=== PATIENT | male | born 1965 | race Caucasian/White ===

== ENCOUNTER 2025-07-27 10:52 | Emergency (ER) | payer OTHER, SELFPAY ==
--- NOTE | ~2025-07-27 | XR_ITS ---
CLINICAL HISTORY: chest pain 2 view chest x-ray Comparison: None provided Findings: Mild hazy right lower lung atelectasis/infiltrate. Normal size heart. No acute fracture. IMPRESSION: Mild hazy right lower lung atelectasis/infiltrate. This document has been electronically signed by: Vane Aguilar MD on 07/27/2025 12:11:48
--- NOTE | 2025-07-27 10:53 | ECG_ITS ---
Test Reason : cp Blood Pressure : */* mmHG Vent. Rate : 71 BPM Atrial Rate : 71 BPM P-R Int : 162 ms QRS Dur : 78 ms QT Int : 394 ms P-R-T Axes : 16 -12 14 degrees QTcB Int : 428 ms Normal sinus rhythm Normal ECG No previous ECGs available Referred By: Calista Isidro Electronically Signed By: Kwesi Mejia
[2025-07-27 11:02] VITALS: BP 150/93; PULSE 72; RESP 18; TEMP 36.4; O2SAT 95; BMI 29.3
--- NOTE | 2025-07-27 11:03 | ED_ITS ---
HPI - General Adult General Chief complaint: Chest Pain Stated complaint: CP Time Seen by Provider: 07/27/25 11:19 History of Present Illness ED Provider: Mic TORRES narrative: The patient is a 60-year-old male who has a history of a myocardial infarction approximately 10 years ago. He had a right coronary stent at that time. His current radiation oncology manager is Dr. Mk Aleman at [facility]. The patient says that yesterday afternoon he had an episode of left-sided chest discomfort that lasted about an hour. He says that it vaguely reminded him of the episode of chest discomfort that he had when he had his IL 10 years ago although it was less severe than the episode 10 years ago. He did not seek medical evaluation yesterday. However this morning the left-sided chest discomfort returned and it radiated somewhat to his left shoulder. No definite sweats. No definite shortness of breath. No definite nausea. On this occasion he decided to come to the hospital and the symptoms abated just as he arrived at the hospital. When I interviewed him he was symptom free. He says that he has had other occasions of chest pain when he has come to the emergency room since his IL 10 years ago. His last significant evaluation for chest symptoms was about 2 years ago when he had an unremarkable stress test. Related Data Allergies Allergy/AdvReac Type Severity Reaction Status Date / Time No Known Allergies Allergy Verified 07/27/25 11:04 [facility] Social History Social History Advance Directives: No Advance Directives Information Provided: Yes Do you have a plan to hurt others: No Plan Physical Exam ED Vital Signs: Vital Signs - 24 hr 07/27/25 11:02 07/27/25 11:51 07/27/25 14:00 Temperature 97.5 F 97.9 F 98.3 F Pulse Rate 72 76 68 Respiratory Rate 18 Blood Pressure 150/93 H 121/80 118/75 Pulse Oximetry 95 92 95 Oxygen Delivery Method Room Air Room Air Room Air 07/27/25 14:37 Temperature 98.3 F Pulse Rate 68 Respiratory Rate 16 Blood Pressure 118/75 Pulse Oximetry 95 Oxygen Delivery Method Room Air BMI result Body Mass Index 29.3 Const Other: The patient is a well-groomed, fit looking 60-year-old who was awake, alert, pleasant, cooperative. He did not seem in any distress. Orientation/consciousness: patient oriented x3 HENMT Other: The face is symmetrical. ?Mucous membranes moist. Eyes Other: Pupils are round equal, conjunctivae are clear, extraocular movements intact Neck Neck: Yes normal visual inspection, Yes full ROM and Yes no JVD Resp Effort & Inspection: normal respiratory effort Auscultation: clear to auscultation bilaterally Cardio Rate: regular rate Rhythm: regular rhythm Heart sounds: S1 normal heart sound present and S2 normal heart sound present GI Other: Abdomen is soft and nontender Skin Other: The skin is dry and unremarkable Neuro General: patient oriented x3, tone normal, moves all extremities, no focal motor deficits and CN's II-XI intact bilaterally Extrem Other: There is no calf swelling or tenderness. No asymmetry. No peripheral edema. Course Course Course Narrative: Rapid medical examination performed in triage by Calista Isidro PA-C. Patient is a 60 year old assigned male at presenting to the emergency department with left sided chest pain and left arm pain / numbness. Patient states this pain feels similar to his first heart attack. Detailed physical exam and review of systems are deferred to the concrete pourer. EKG, labs, and imaging ordered. manager exchange aware of patient. Medical Decision Making Medical Decision Making [facility] Narrative: The patient is a 60-year-old male with a history of coronary disease who had some kind of an IL about 10 years ago for which she received a right coronary artery stent. His radiation oncology manager is Dr. Aleman at [facility]. He presents today with 2 episodes of left-sided chest pain. He had an episode yesterday that lasted about an hour. This occurred during the afternoon. He then had a 2nd episode that occurred just before arrival today. This 2nd episode lasted about 1-1/2 hours. Both of these episodes resolved spontaneously. He was asymptomatic at the time that I saw him. He describes a pressure-like chest discomfort that radiates down the left arm. This was not a pleuritic syndrome. There was no pain or swelling in his legs. He has no fever, sweats, chills. No cough or sputum. Yesterday morning the patient had exercised on a bicycle fairly vigorously and had had no symptoms. This was several hours before the episode of chest pain in the afternoon. Today the patient has 2 negative and undetectable troponins. His EKG looks quite normal. His vital signs are unremarkable. Given this workup and has been 9 clinical appearance I think he may be discharged to follow up with his regular radiation oncology manager. However if he is significantly worse he should return to the emergency room for additional evaluation. Lab Data 07/27/25 11:19 07/27/25 11:19 Labs: Lab Results 07/27/25 07/27/25 Range/Units 11:19 13:42 WBC 7.4 (4.8-10.8) X10*3/uL RBC 4.67 (4.60-5.80) X10*6/uL Hgb 14.8 (14.0-18.0) g/dl Hct 42.9 (42.0-52.0) % MCV 91.9 (80.0-98.0) fL MCH 31.7 (27.0-33.0) pg MCHC 34.5 (31.0-36.0) g/dl RDW 12.4 (11.0-16.0) % Plt Count 184 (160-400) X10*3/uL MPV 8.6 L (9.4-12.4) fL Immature Gran % (Auto) 0.3 (0.0-0.4) % Neut % (Auto) 73.1 H (45-73) % Lymph % (Auto) 15.4 L (20-40) % [place] % (Auto) 10.0 (2-11) % Eos % (Auto) 0.7 (0-4) % Baso % (Auto) 0.5 (0-2) % Lymph # (Auto) 1.1 L (1.2-4.9) X10*3/uL [place] # (Auto) 0.7 (0.1-1.2) X10*3/uL Eos # (Auto) 0.1 (0.0-0.4) X10*3/uL Baso # (Auto) 0.0 (0.0-0.2) X10*3/uL Abs Immat Gran (auto) 0.02 (0.00-0.03) X10*3/uL Absolute Neuts (auto) 5.4 (2.0-8.3) x10*3/uL Absolute Nucleated RBC 0.000 (0.0-0.012) X10*3/uL Nucleated RBC % (auto) 0.0 (0.0-0.2) /100WBC PT 12.8 H (10.9-12.4) SEC INR 1.1 (0.9-1.1) Sodium 140 (135-145) mmol/L Potassium 3.8 (3.3-5.1) mmol/L Chloride 106 (96-108) mmol/L Carbon Dioxide 28 (22-29) mmol/L Anion Gap 10 L (12-20) BUN 13 (9-16) mg/dL Creatinine 0.97 (0.5-1.4) mg/dL Estim Creat Clear Calc 88.1 Estimated GFR > 60 Random Glucose 115 (60-115) mg/dL Calcium 9.4 (8.4-10.2) mg/dL Magnesium 2.3 (1.6-2.6) mg/dL Total Bilirubin 0.9 (0.0-1.0) mg/dL AST 45 H (5-37) U/L ALT 60 H (0-40) U/L Alkaline Phosphatase 85 (39-117) U/L Troponin I High Sens < 2.7 < 2.7 (<3.5-35.0) ng/L NT-Pro-B Natriuret Pep 52.8 (<300) pg/mL Total Protein 7.5 (6.5-8.0) g/dL Albumin 4.6 (3.5-5.0) g/dL Independent Interpretation I performed an independent interpretation of an: EKG Interpretation: EKG at 1057 shows normal sinus rhythm at 71 beats per minute. It is an unremarkable EKG. No definite acute ischemic changes. No old EKGs available for comparison. Discharge Plan Discharge Clinical Impression: Chest pain Patient Disposition: Home, Self-Care Instructions: Chest Pain (ED) Additional Instructions: Your testing in the emergency room today seems quite reassuring. Your EKG looks quite normal and your troponins are undetectable. Nevertheless it would be appropriate for you to follow up very closely with your radiation oncology manager. Please call your radiation oncology manager first thing in the morning to arrange a follow up appointment to discuss these episodes further. If significantly worse please return to the emergency room. Referrals: Zoran Guo MD [Primary Care Provider, Medical] Marcelino Aleman MD [Physician, Cardiology] Interventions: ED Discharge Assessment Last Done: 07/27/25 14:37 Discharge Date/Time: 07/27/25 14:38 Print Language: Pashto
[2025-07-27 11:26] LABS: MANUAL DIFF FLAG NO
[2025-07-27 11:27] LABS: Hematocrit 42.9 % (42.0-52.0); Hemoglobin 14.8 g/dl (14.0-18.0); Imm Gran Abs Auto 0.02 X10*3/uL (0.00-0.03); Imm Gran Pct Auto 0.3 % (0.0-0.4); Lymphocytes Absolute Auto 1.1 X10*3/uL (1.2-4.9); Mean Corpuscular HGB Conc 34.5 g/dl (31.0-36.0); Mean Corpuscular Hemoglobin 31.7 pg (27.0-33.0); Mean Corpuscular Volume 91.9 fL (80.0-98.0); NRBC Abs Auto 0.000 X10*3/uL (0.0-0.012); NRBC Pct Auto 0.0 /100WBC (0.0-0.2); Platelet Count 184 X10*3/uL (160-400); Red Blood Count 4.67 X10*6/uL (4.60-5.80); White Blood Count 7.4 X10*3/uL (4.8-10.8)
[2025-07-27 11:32] LABS: INTERNATIONAL NORM RATIO 1.1 (0.9-1.1); Prothrombin Time 12.8 SEC (10.9-12.4)
--- OUTSIDE RECORDS SUMMARY | 2025-07-27 11:38 | XMS_ITS | Clinical Summary ---
Author Organization [facility] Address [address] [place] [phone] Phone Care Team Providers Care Wool Tamper Name Role Phone Uziel Guo MD Primary Care Provider [phone] Allergies No known active allergies Medications multivitamins capsule Orally Active aspirin 81 MG EC tablet Take 81 mg by mouth daily. Active ezetimibe (ZETIA) 10 mg tablet TAKE 1 TABLET(10 MG) BY MOUTH DAILY 90 tablet 3 03/12/2025 Active lisinopril (PRINIVIL,ZESTRI L) 5 MG tabletIndication s:Annual physical exam TAKE 1 TABLET(5 MG) BY MOUTH DAILY 90 tablet 3 03/16/2025 Active fluticasone propionate (FLONASE) 50 mcg/actuation nasal sprayIndications :Environmental allergies 1 spray by Nasal route daily. 16 g 5 03/24/2025 Active fexofenadine (BELLA) 180 MG tabletIndication s:Environmental allergies Take 1 tablet (180 mg total) by mouth daily. 90 tablet 3 03/24/2025 Active atorvastatin (LIPITOR) 80 MG tabletIndication s:Medication refill TAKE 1 TABLET BY MOUTH EVERY DAY 90 tablet 3 05/11/2025 Active Active Problems Problem Noted Date Diagnosed Date Essential hypertension 08/13/2023 Assessment & Plan (08/28/2023 12:56 PM EST): Blood pressure in the office today is normal. We will have him follow-up in 6 months. Assessment & Plan (08/13/2023 9:00 AM EDT): Blood pressure in the office today is a little over normal. He does tell me, though, that he gets headaches particularly with exertion. I am wondering if he has elevated blood pressure which is contributing to his headaches. I have suggested that he start lisinopril 5 mg once daily. He will have labs in a week. I will follow-up with him in 2 weeks. Chronic headaches 07/26/2023 Overview (07/26/2023): CT angiogram normal. Tends to get a headache after exercise. He had 1 migraine. By exam and symptoms I suspect seasonal allergies are worsening his symptoms and I recommended he start the Flonase that I previously prescribed. Continue Zyrtec and try saline nasal rinses Colon adenoma 07/01/2020 Overview (07/01/2020): Colonoscopy June 2020 Chest pain 09/18/2019 Assessment & Plan (07/11/2023 11:29 AM EDT): See above plan. History of right coronary artery stent placement 05/09/2019 Overview (07/26/2023): Negative nuclear stress test June 2023 after reporting chest discomfort during exercise Assessment & Plan (08/28/2023 12:55 PM EST): He has coronary artery disease. He has not had any chest pain or any other symptoms which are concerning for ischemia. We will continue to optimize his risk factors. Blood pressure in the office today is controlled. Continue aspirin and atorvastatin. History of non-ST elevation myocardial infarctio n (NSTEMI) 03/29/2018 Mixed hyperlipidemia 03/29/2018 Overview (05/10/2021): Well-controlled on high-dose Lipitor, prescribed after his stent Assessment & Plan (08/28/2023 12:56 PM EST): Continue Lipitor. Assessment & Plan (08/13/2023 9:00 AM EDT): Continue Lipitor. Assessment & Plan (07/11/2023 11:28 AM EDT): Continue Lipitor. ACL tear 01/29/2018 Atherosclerosis of elem co ronary artery of elem heart without angina pectoris 01/29/2018 Overview (03/24/2025): St[place] RCA in 2014, [place] [facility]. April 2021: Brief telemetry admission last month at [facility], no signs of ischemia found. Has follow-up with our cardiology group next month. He has had repeat negative stress testing since the stent. March 2025: weaned off beta rody, no anginal sx. Assessment & Plan (08/13/2023 8:59 AM EDT): He has a history of coronary artery disease and had a stent placed to the RCA in 2014. He recently had a stress test for chest discomfort. The test was normal showing no evidence of ischemia or previous AR. We will continue to optimize his risk factors. Continue aspirin and atorvastatin. Assessment & Plan (07/11/2023 11:28 AM EDT): The patient has a history of coronary artery disease and had a stent placed to the RCA in 2014. Recently, he tells me that he has been exercising on the treadmill as usual. He has been feeling well on the treadmill but afterwards he gets intermittent left-sided chest discomfort. He also gets a really profound headache after exercise. He was seen at [facility] and ruled out for an AR. He had a CT scan of the head which was normal. I have suggested that he have a nuclear stress test. The patient will hold his metoprolol for 48 hours prior to testing. I have also suggested that he have an echocardiogram. I will follow-up with him in 1 month. Assessment & Plan (03/20/2023 9:07 AM EDT): Stable, no anginal sx Lipids well controlled Chronic idiopathic gout of multiple sites 2017 Overview (10/28/2019): Inactive, has prn colchicine Assessment & Plan (01/29/2018 3:02 PM EDT): Rarely gets sx, keeps colcrys on hand prn Encounters Date Type Department Care Team Description 07/17/2025 Patient Outreach [facility] [address] [place] [address] [address], [address] Care Coordination 07/14/2025 Patient Outreach [facility] [address] [place] [address] [address] Care Coordination 07/08/2025 Patient Outreach [facility] [address] [place] [address] [address], [address] Care Coordination 05/09/2025 Refill [facility] [address], [address] [place] [address] Anayeli Aleman MD Medication Refill 04/29/2025 3:00 PM EDT Office Visit [facility] [address], [address] [place] [address] Anayeli Aleman MD Mixed hyperlipidemia (Primary Dx); Essential hypertension; Coronary artery disease involving elem coronary artery of elem heart without angina pectoris from Last 3 Months Immunizations Immunization Administration Dates Next Due COVID-19 (Pre-08/06) Pfizer Vaccine, mRNA, PF 08/28/2021,01/10/2021,12/22/2020 Influenza Quadrivalent Preservative Free IM 07/16,08/06/2021,07/28/2019 Influenza Recombinant Keyon valent Preservative Free IM 08/12/2023 Influenza Trivalent MDCK Pre servative Free IM 06/28/2024 Influenza, Unspecified Formulation 08/06/2021, Pneumococcal conjugate PCV20 03/24/2025 Td (adult) 5 Lf Tetanus Toxo id, PF, Adsorbed 03/21/2024 Tdap 10/06/2011 Family History Medical History Relation Comments Hypertension Brother 1 Hypertension Brother 2 Coronary artery disease Father Liver cancer Father Hypertension Sister Relation Status Comments Brother 1 Alive Brother 2 Alive Father (Age 58) Mother Alive Sister Alive Social History Tobacco Use Types Packs/Day Years Used Date Smoking Tobacco: Former Cigarettes 15 1 981 - 1995 Smokeless Tobacco: Never Alcohol Use Standard Drinks/Week Comments Yes 0 (1 standard drink = 0.6 oz pur e alcohol) 5/wk Child or Family Care Answer Date Record ed Do you have problems with on e of the following making it difficult for you to work, study, or receive health care? No 03/23/2025 Education Answer Date Recorded Are you interested in help w ith more adult education (for example, completing high school, GED, job training, learning the Yoruba language, technical skills, or developing parenting skills)? No 03/23/2025 Are you concerned about learning? Not on file 03/23/2025 No 03/23/2025 Yes 03/23/2025 Food Answer Date Recorded Within the past 6 months we worried whether our food would run out before we got money to buy more. Never True 03/23/2025 Within the past 6 months the food we bought just didn't last and we didn't have enough money to get more. Never True Residential Stability Answer Date Recor ded What is your housing situation today? I have mike sing 03/23/2025 How many times have you move d in the past 12 months? Zero (I did not move) 03/23/2025 Paying for Meds Answer Date Recorded Do you have trouble paying for medicines? No 03/23/2025 Paying Utility Bills Answer Date Record ed Do you have trouble paying your heating or elect ricity bill? No 03/23/2025 Transportation Answer Date Recorded Has the lack of transportati on kept you from medical appointments or from getting medications? No 03/23/2025 Digital Access Answer Date Recorded No 03/23/2025 Yes 03/23/2025 Do you have reliable internet access at home? Ye s 03/23/2025 Do you have a device (e.g., phone, tablet, computer) with a working camera? Yes 03/23/2025 Intimate Partner Violence Answer Date R ecorded Denied Basic Needs Not on file 03/23/2025 In the past 12 months have y ou been in a relationship with a person who hurts, threatens, or tries to control you? No 03/23/2025 Worried food would run out Not on file 03/23 In the past 12 months have y ou been in a relationship with a person who hurts, threatens, or tries to control you? No 03/23/2025 Sex and Gender Information Value Date Recorded Sex Assigned at Male 09/23/2018 8:23 PM EST Legal Sex Male 9:40 PM EDT Gender Identity Male 09/23/2018 8:23 PM EST Sexual Orientation Straight 09/23/2018 8: 23 PM EST Last Filed Vital Signs Vital Sign Reading Time Taken Comments Blood Pressure 150/70 04/29/2025 3:15 PM EDT Pulse 80 04/29/2025 3:15 PM EDT Temperature 36.4 C (97.6 F) 03/24/2025 7:54 AM EDT Respiratory Rate 17 07/03/2023 9:00 PM EDT Oxygen Saturation 97% 04/29/2025 3:15 PM EDT Inhaled Oxygen Concentration - - Weight 86.3 kg (190 lb 3.2 oz) 04/29/2025 3:15 P M EDT Height 171.4 cm (5' 7.48 ) 04/29/2025 3:15 PM ED T Body Mass Index 29.37 04/29/2025 3:15 PM EDT Plan of Treatment Upcoming Encounters Date Type Department Care Team (Late st Contact Info) Description 08/17/2025 12:00 PM EST Office Visit [facility] [address] [place] [address] Unknown, Unknown, Damaris Szymanski, WATER TENDER [address] [place] [address] 11/17/2025 7:40 AM EST Office Visit [facility] [address] [place] [address] [address]rd Floor, [address] [place] [address] Anayeli Aleman MD [address] [place] [address], [address] [address] 03/30/2026 8:00 AM EDT Office Visit [facility] [address] [place] [address] Uziel Guo MD [address] [place] [address], [address] [place] [address] [email or web address] Health Maintenance Due Date Last Done Comments COLOGUARD 2011 FIT TEST 2011 FOBT 2011 SIGMOIDOSCOPY 2011 VIRTUAL COLONOSCOPY 2011 ZOSTER VACCINES (1 of 2) 02/02/2016 CREATININE LEVEL 03/21/2025 03/21/2024, 07/2023, 07/03/2023, Additional history exists POTASSIUM LEVEL 03/21/2025 03/21/2024, 08/15, 07/03/2023, Additional history exists INFLUENZA VACCINE (#1) 2025 , 08/12/2023, 08/12/2022, Additional history exists COVID-19 VACCINE ( season) 2025 08/09/2024, 08/27/2022, 08/28/2021, Additional history exists BLOOD PRESSURE 10/30/2025 04/29/2025 DEPRESSION SCREENING 03/23/2026 03/23/2025 SCREENING FOR DIABETES 03/21/2027 03/21/2024, 2023 COLONOSCOPY 06/30/2030 06/30/2020 COLORECTAL CANCER SCREENING 06/30/2030 Adult Td,Tdap Booster 03/21/2034 03/21/2024, 011 RSV VACCINE (1 - 1-dose 75+ series) 2041 HEPATITIS C SCREENING Completed 03/20/2023 HIV ONE-TIME SCREENING (18-65 YEARS) Completed 03/20/2023 PNEUMOCOCCAL VACCINES (50+ years) Completed 03/24/2025 SMOKING STATUS SCREENING (Once After 26 Yrs) Completed 04/29/2025 HEPATITIS A VACCINES Aged Out No long er eligible based on patient's age to complete this topic HIB VACCINES Aged Out No longer eligi ble based on patient's age to complete this topic MENINGOCOCCAL VACCINES (ACWY) Aged Out No longer eligible based on patient's age to complete this topic MENINGOCOCCAL VACCINES (B) Aged Out N o longer eligible based on patient's age to complete this topic Medical Devices Implanted Type Area Medical Records Clerk Device Identifier Shelf Expiration Date Model / Serial / Lot Stent Stent Coronary Procedures Procedure Name Priority Date/Time Associated Diagnosis Comments BASIC METABOLIC PANEL Routine 03/21/2024 8:33 AM EDT Annual physical exam HEPATITIS C ANTIBODY, QUALITATIVE Routine 03/20/2023 9:22 AM EDT Need for hepatitis C screening test ENDOSCOPY, COLON 06/30/2020 7:30 AM EDT from Last 3 Months or Most Recently Relevant to Health Maintenance Results * Basic metabolic panel (03/21/2024 8:33 AM EDT) SODIUM 141 133 - 146 mmol/L [facility] CHLORIDE 104 96 - 108 mmol/L [facility] POTASSIUM 4.4 3.3 - 5.1 mmol/L [facility] CO2 25 21 - 35 mmol/L [facility] BUN 12 6 - 19 mg/dL [facility] CREATININE 1.00 0.5 - 1.5 mg/dL [facility] GLUCOSE 89 70 - 99 mg/dL [facility] CALCIUM 9.3 8.4 - 10.3 mg/dL [facility] EGFR 87 >59 mL/min/1.7 3m2 [facility] Comment:Estimated glomerular filtration rate calculated using the CKD-EPI refit equation. ANION GAP 16 10 - 20 mmol/L [facility] Blood 03/21/2024 8:33 AM EDT 03/21/2024 8:46 AM EDT us Uziel Guo MD LAB BLOOD ORDERABLES Final Resu lt [facility] [address] [place] [address] * Hepatitis C antibody, qualitative (03/20/2023 9:22 AM EDT) HCV NON-REACTIV E NON-REACTI VE [facility] Blood 03/20/2023 9:22 AM EDT 03/20/2023 9:24 AM EDT us Uziel Guo MD LAB BLOOD ORDERABLES Final Resu lt [address] [address] * ENDOSCOPY, COLON (06/30/2020 7:30 AM EDT) Narrative Transcriptions Anayeli Ortiz MD - 06/30/2020 7:30 AM EDT Patient Name: Caleb Cardona Attending MD:: ANAYELI ORTIZ MD Procedure Date: 06/30/2020 7:30 AM Date of : 1965 Age: 55 Admit Type: Outpatient Gender: Male Room: [place] [address] Referring MD: UZIEL GUO Exam Type: Colonoscopy Indications: Screening for colorectal malignant neoplasm, This is the patient's first colonoscopy Medications: Monitored Anesthesia Care Procedure: Informed consent was obtained from the patient after discussion of the indications, limitations, alternatives, benefits, and risks of the procedure. Risks specifically discussed include but are not limited to medication reactions, missed lesions, bleeding, perforation, or the need for emergentsurgery. Throughout the procedure, the patient's bloodpressure, pulse, end-tidal CO2, and oxygen saturations were monitored continuously. The Olympus adult variable colonoscope [id number] #5was introduced through the anus and advanced to the terminal ileum, with identification of theappendiceal orifice and IC valve. The colonoscopy was performed without difficulty. The patient tolerated theprocedure well. The quality of the bowel preparation wasadequate after copious irrigation. Complications: No immediate complications. Estimated blood loss:None. Findings: The perianal and digital rectal examinations were normal. The terminal ileum appeared normal. Examination of the right colon was repeated in retroflexion and again in NBI. Retroflexion was also performed in the rectum. Two sessile polyps were found in the transversecolon. The polyps were 4 to 6 mm in size. These polyps were removed with a cold snare. Resection and retrievalwere complete. A few diverticula were found in the sigmoid colon. External and internal hemorrhoids were found during retroflexion. The hemorrhoids were small. The exam was otherwise without abnormality. Impression: - The examined portion of the ileum was normal. - Two 4 to 6 mm polyps in the transverse colon,removed with a cold snare. Resected and retrieved. - Diverticulosis in the sigmoid colon. - External and internal hemorrhoids. - The examination was otherwise normal. Recommendation: - Patient has a contact number available for emergencies. The signs and symptoms of potential delayed complications were discussed with thepatient. Return to normal activities tomorrow. Writtendischarge instructions were provided to the patient. - Await pathology results. - Repeat colonoscopy in 5 years for surveillance. Anayeli Ortiz ANAYELI ORTIZ MD 06/30/2020 8:36:20 AM This report has been signed electronically. Number of Addenda: 0 Note Initiated On: 06/30/2020 7:30 AM Procedure Code(s): --- Professional --- 73915, Colonoscopy, flexible; with removal of tumor(s), polyp(s), or other lesion(s) by snare technique --- Technical --- 64871, Colonoscopy, flexible; with removal of tumor(s), polyp(s), or other lesion(s) by snare technique CPT copyright 2018 [employer] [place] [employer]. All rights reserved. The codes documented in this report are preliminary and upon retirement manager reviewmay be revised to meet current compliance requirements. Procedure Date: 06/30/2020 7:30:23 AM [address] [place], [place] [id number] Uziel Guo MD GI PROCEDURE ORDERABLES Final R esult from Last 3 Months or Most Recently Relevant to Health Maintenance Insurance CIGNA PPO CIGNA PPO CIGNA PPO CIGNA PPO CIGNA PPO CIGNA PPO CIGNA PPO CIGNA PPO CIGNA PPO Member Subscriber Plan / Payer (Ef fective 2020-Present) Name:Caleb Cardona Relation to Subscriber:Self Name:Caleb Cardona Payer ID:[id number] (NAIC) Type:PPO Address: [address] [place] [id number] Care Teams Wool Tamper Relationship Specialty Start Date End Date Uziel Guo MD [address] [place] [address], [address] [place] [address] PCP - General Internal Medicine 4/10/18 Additional Source Comments The information contained in this document represents components of the legal health record. It is not the complete legal health record.[facility]
--- OUTSIDE RECORDS SUMMARY | 2025-07-27 11:38 | XMS_ITS | Encounter Summary ---
Author Organization [facility] Address [address] [place] [phone] Phone Care Team Providers Care Diamond Expert Name Role Phone Zoran Guo MD Primary Care Provider [phone] Encounter Details Date Type Department Care Team (Late st Contact Info) Description 07/03/2023 Procedure Pass [facility], Ct Scan - [address] [address] Social History Tobacco Use Types Packs/Day Years Used Date Smoking Tobacco: Former Cigarettes 1 15 981 - 1995 Smokeless Tobacco: Never Alcohol Use Standard Drinks/Week Comments Yes 0 (1 standard drink = 0.6 oz pur e alcohol) 5/wk Child or Family Care Answer Date Record ed Do you have problems with on e of the following making it difficult for you to work, study, or receive health care? No 03/20/2023 Education Answer Date Recorded Are you interested in help w ith more adult education (for example, completing high school, GED, job training, learning the Divehi language, technical skills, or developing parenting skills)? Yes 03/20/2023 Are you concerned about learning? Not on file 03/20/2023 Yes 03/20/2023 No 03/20/2023 Food Answer Date Recorded Within the past 6 months we worried whether our food would run out before we got money to buy more. Never True 03/20/2023 Within the past 6 months the food we bought just didn't last and we didn't have enough money to get more. Never True Residential Stability Answer Date Recor ded What is your housing situation today? I have mike bailey 03/20/2023 How many times have you move d in the past 12 months? Zero (I did not move) 03/20/2023 Paying for Meds Answer Date Recorded Do you have trouble paying for medicines? No 03/20/2023 Paying Utility Bills Answer Date Record ed Do you have trouble paying your heating or elect ricity bill? No 03/20/2023 Transportation Answer Date Recorded Has the lack of transportati on kept you from medical appointments or from getting medications? No 03/20/2023 Digital Access Answer Date Recorded No 03/20/2023 Yes 03/20/2023 Do you have reliable internet access at home? Ye s 03/20/2023 Do you have a device (e.g., phone, tablet, computer) with a working camera? Yes 03/20/2023 Sex and Gender Information Value Date Recorded Sex Assigned at Male 09/23/2018 8:23 PM EST Legal Sex Male 9:40 PM EDT Gender Identity Male 09/23/2018 8:23 PM EST Sexual Orientation Straight 09/23/2018 8: 23 PM EST documented as of this encounter Functional Status * Calculated C-SSRS Risk Score (Lifetime/Recent) Answer Date of Assessment Author No Risk Indicated 07/03/2023 5:37 PM EDT Chilo Mata RN * [place] Suicide Severity Rating Scale (Screener/Recent Self-Report) Question Answer Date of Assessment Author 1. Wish to be (Past 1 Month) No 023 5:37 PM EDT Yumiko Mata, MERE 2. Non-Specific Active Suici jaime Thoughts (Past 1 Month) No 07/03/2023 5:37 PM EDT Yumiko Mata RN 6. Suicidal Behavior (Lifetime) No 3 5:37 PM EDT Yumiko Mata RN documented as of this encounter Plan of Treatment Upcoming Encounters Date Type Department Care Team (Late st Contact Info) Description 08/17/2025 12:00 PM EST Office Visit [facility] [address] [place] [phone] Unknown, Unknown, MD [place], Damaris Figueroa, SHALLOT CLEANER [address] [place] [address] [facility] 11/17/2025 7:40 AM EST Office Visit [facility] [address], [address] [place] [address] Marcelino Aleman MD [address] [facility], [address] [place] [address] 03/30/2026 8:00 AM EDT Office Visit [facility] [address] [place] [address] Zoran Guo MD [address] [place] [address], [address] [place] [address] documented as of this encounter Visit Diagnoses Not on filedocumented in this encounter Additional Health Concerns Assessment Noted Time PHQ-2 Depression Total Score: 0 03/20/20 23 8:25 AM EDT documented as of this encounter Care Teams Diamond Expert Relationship Specialty Start Date End Date Zoran Guo MD [address] [place] [address], [address] [place] [address] [email or web address] PCP - General Internal Medicine 01/22/18 documented as of this encounter Additional Source Comments The information contained in this document represents components of the legal health record. It is not the complete legal health record.[facility]
--- OUTSIDE RECORDS SUMMARY | 2025-07-27 11:38 | XMS_ITS | Encounter Summary ---
Author Organization [facility] Address [address] [place] [address] Phone Care Team Providers Care Obstetrics Technician Name Role Phone Donavan Moran DO Unavailable Heidy Lees MD Unavailable + Nanette Joshua MD Unavailable [phone] Tristan Rosenthal MD Unavailable Zoran Guo MD Primary Care Provider Zoran Guo MD Unavailable [phone] Encounter Details Date Type Department Care Team (Late st Contact Info) Description 06/30/2020 Procedure Pass [facility] Endoscopy Admitting Dept Virtual Department [address] [place] [id number] Social History Tobacco Use Types Packs/Day Years Used Date Smoking Tobacco: Former Cigarettes 1 15 1 981 - 1995 Smokeless Tobacco: Never Alcohol Use Standard Drinks/Week Comments Yes 0 (1 standard drink = 0.6 oz pur e alcohol) 5/wk Sex and Gender Information Value Date Recorded Sex Assigned at Male 09/23/2018 8:23 PM EST Legal Sex Male 9:40 PM EDT Gender Identity Male 09/23/2018 8:23 PM EST Sexual Orientation Straight 09/23/2018 8: 23 PM EST documented as of this encounter Plan of Treatment Upcoming Encounters Date Type Department Care Team (Late Contact Info) Description 08/17/2025 12:00 PM EST Office Visit [facility] [address] [place] [address] Unknown, Unknown, Damaris Szymanski, GORE STITCHER [address] [place] [address] 11/17/2025 7:40 AM EST Office Visit [facility] [address] [place] [address] [address] Floor, [address] [place] [address] Marcelino Aleman MD [address] [place] [address], [address] [place] [address] 03/30/2026 8:00 AM EDT Office Visit [facility] [address] [address] Zoran Guo MD [address] [place] [address], [address] [place] [address] documented as of this encounter Visit Diagnoses Not on filedocumented in this encounter Care Teams Obstetrics Technician Relationship Specialty Start Date End Date Zoran Guo MD [address] [place] [address], [address] [place] [address] PCP - General Internal Medicine 01/22/18 Donavan Moran DO [address] [place] [address] [facility] [place] [address] Historical LMR Provider 08/02/17 10/22/21 Heidy Lees MD [address] [place] [address] [email or web address] Historical LMR Provider 08/02/17 10/22/21 Nanette Joshua MD [address] [place] [address] [facility] [place] [address] [email or web address] Historical LMR Provider 08/02/17 Tristan Rosenthal MD [address] [place] [address] Historical LMR Provider 08/02/17 2 Zoran Guo MD [address] [place] [address], [address] [place] [address] [email or web address] Insurance Assigned Provider 02/15/19 03/20/21 documented as of this encounter Additional Source Comments The information contained in this document represents components of the legal health record. It is not the complete legal health record.[facility]
--- OUTSIDE RECORDS SUMMARY | 2025-07-27 11:38 | XMS_ITS | Encounter Summary ---
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 [...] your housing situation today? I have mike leo 03/20/2023 How many times have you move [...] Description 08/17/2025 12:00 PM EST Office Visit [facility] [address] [place] [address] Unknown, Unknown, Damaris Szymanski, TOLL COLLECTOR [address] [place] [address] 11/17/2025 7:40 AM EST Office Visit [facility] [address] [place] [address] [address]rd Floor, [address] [place] [address] Marcelino Aleman MD [address] [place] [address], [address] [place] [address] 03/30/2026 8:00 AM EDT Office Visit [facility] [address] [place] [address] [place] [address] Zoran Guo MD [address] [place] [address], [address] [place] [address] [email or web address] documented as of this encounter Visit Diagnoses Not on filedocumented in this encounter Additional Health Concerns Assessment Noted Time PHQ-2 Depression Total Score: 0 03/20/20 23 8:25 AM EDT documented as of this encounter Care Teams Tree Trimming Supervisor Relationship Specialty Start Date End Date Zoran Guo MD [address] [facility], [address] [place] [address] [email or web address] PCP - General Internal Medicine 01/22/18 documented as of this encounter Additional Source Comments The information contained in this document represents components of the legal health record. It is not the complete legal health record.[facility]
[2025-07-27 11:41] LABS: Alanine Aminotransferase 60 U/L (0-40); Albumin Level 4.6 g/dL (3.5-5.0); Alkaline Phosphatase 85 U/L (39-117); Anion Gap 10 (12-20); Aspartate Amino Transferase 45 U/L (5-37); Blood Urea Nitrogen 13 mg/dL (9-16); Calcium 9.4 mg/dL (8.4-10.2); Carbon Dioxide 28 mmol/L (22-29); Chloride 106 mmol/L (96-108); Creatinine Clr Calc Pharmacy 88.1; Estimated Glomerular Filt Rate > 60; Magnesium 2.3 mg/dL (1.6-2.6); Potassium 3.8 mmol/L (3.3-5.1); Sodium 140 mmol/L (135-145); Total Protein 7.5 g/dL (6.5-8.0)
[2025-07-27 11:48] LABS: NT Pro B Type Natriuretic Pept 52.8 pg/mL (<300); Troponin-I High Sensitivity < 2.7 ng/L (<3.5-35.0)
[2025-07-27 11:51] VITALS: BP 121/80; PULSE 76; TEMP 36.6; O2SAT 92
[2025-07-27 14:00] VITALS: BP 118/75; PULSE 68; TEMP 36.8; O2SAT 95
[2025-07-27 14:08] LABS: Troponin-I High Sensitivity < 2.7 ng/L (<3.5-35.0)
[2025-07-27 14:37] VITALS: BP 118/75; PULSE 68; RESP 16; TEMP 36.8; O2SAT 95
== END 2025-07-27 14:38 | disposition home or self-care (01) ==
PROVIDERS: Physician Assistant Medical; Emergency Provider Emergency Medicine; PCP Internal Medicine
DX: R07.89 Other chest pain (principal); M25.512 Pain in left shoulder; R20.0 Anesthesia of skin; I25.10 Atherosclerotic heart disease of native coronary artery without angina pectoris; I25.2 Old myocardial infarction; Z95.5 Presence of coronary angioplasty implant and graft
CPT/HCPCS: 36415; 71046; 80053; 83735; 83880; 84484; 85025; 85610; 93005; 99283; 99284

== ENCOUNTER → 2025-07-27 10:53 | Outpatient (BNV) | payer OTHER, SELFPAY | PROVIDERS: Emergency Provider Emergency Medicine; PCP Internal Medicine; Visit Provider Internal Medicine Cardiovascular Disease | DX: R07.89 Other chest pain (principal) | CPT/HCPCS: 93010 ==

== ENCOUNTER → 2025-07-27 11:05 | Outpatient (BNV) | payer OTHER, SELFPAY | PROVIDERS: Emergency Provider Emergency Medicine; PCP Internal Medicine; Visit Provider Radiology Diagnostic Radiology | DX: R07.9 Chest pain, unspecified (principal) | CPT/HCPCS: 71046 ==